=== PATIENT | female | born 1975 | race Caucasian/White ===

== ENCOUNTER 2020-04-29 09:30 | Outpatient (CLI) | payer MEDICAID, SELFPAY ==
--- NOTE | 2020-04-29 09:41 | XR_ITS ---
WS: [id number] Chest 2 views, 04/29/2020 Clinical Data: SUPRACLAVICULAR LYMPHADENOPATHY Comparison: None. Findings: No nodules, masses or effusions are seen. The heart is normal. The pulmonary vascularity is not increased. No pneumonia or pneumothorax is seen. There is a dextroscoliosis of the lower thoraci c spine. XR/XR chest 2V* [id number] Impression: Negative chest.
== END 2020-04-29 09:31 | disposition home or self-care (01) ==
LOC: RAD 09:37
PROVIDERS: PCP Nurse Practitioner Family; Visit Provider Nurse Practitioner Family
DX: R59.0 Localized enlarged lymph nodes (principal)
CPT/HCPCS: 71046

== ENCOUNTER 2020-06-24 09:41 | Outpatient (CLI) | payer MEDICAID, SELFPAY ==
--- NOTE | 2020-06-24 09:56 | US_ITS ---
WS: [id number] ULTRASOUND SOFT TISSUES cervical chains. HISTORY: LOCALIZED ENLARGED LYMPH NODES COMPARISON: None available. TECHNIQUE: 2-D and color Doppler imaging is submitted. Bilateral cervical chains are imaged. Bilateral benign-appearing lymph nodes along the cervical chain s. Normal appearance with normal fatty addis. No enlargement. Lymph nodes remain being shape. No fluid collections. US/US soft tissue/extremity [id number] IMPRESSION: Normal-appearing bilateral cervical chain lymph nodes.
== END 2020-06-24 09:42 | disposition home or self-care (01) ==
PROVIDERS: PCP Nurse Practitioner Family; Visit Provider Specialist
DX: R59.0 Localized enlarged lymph nodes (principal)
CPT/HCPCS: 76882

== ENCOUNTER 2020-07-21 13:36 | Outpatient (CLI) | payer BC, MEDICAID, SELFPAY ==
--- NOTE | 2020-07-21 13:43 | MM_ITS ---
WS: [id number] SCREENING DIGITAL MAMMOGRAM WITH CAD HISTORY: SCREENING COMPARISON: None available. Bilateral CC and MLO views submitted. Computer aided detection analyzed. Breast composition: There are scattered areas of fibroglandular density. No suspicious masses, microc alcifications or architectural distortion. MM/[place] [id number] IMPRESSION: BI-RADS: 1-Negative FOLLOW UP: 1 Year Follow-up
== END 2020-07-21 13:37 | disposition home or self-care (01) ==
LOC: RADSHAW 13:41
PROVIDERS: PCP Nurse Practitioner Family; Visit Provider Internal Medicine
DX: Z12.31 Encounter for screening mammogram for malignant neoplasm of breast (principal)
CPT/HCPCS: 77067

== ENCOUNTER 2022-09-11 07:55 | Outpatient (CLI) | payer BC, MEDICAID, SELFPAY ==
--- NOTE | 2022-09-11 08:07 | MM_ITS ---
WS: [id number] Bilateral screening 3D tomosynthesis digital mammogram, 09/11/2022 Clinical Data: SCREEN Comparison: 07/21/2020 Findings: The breast parenchymal pattern shows fibroglandular tissue. No spiculated masses or clustered calcifi cations are seen. There are no secondary signs of carcinoma. There are lymph nodes in the left axilla . MM/[place] [id number] Impression: 1. Negative bilateral mammogram unchanged. 2. Recommend annual screening mammograms. BIRADS: 1-Negative FOLLOW UP: 1 Year Follow-up The CAD sample checker was used.
== END 2022-09-11 07:56 | disposition home or self-care (01) ==
PROVIDERS: PCP Nurse Practitioner Family; Visit Provider Nurse Practitioner Family
DX: Z12.31 Encounter for screening mammogram for malignant neoplasm of breast (principal)
CPT/HCPCS: 77063; 77067

== ENCOUNTER → 2023-09-07 08:13 | Outpatient (BNVA) | payer BC, MEDICAID, SELFPAY | PROVIDERS: PCP Nurse Practitioner Family; Referring Provider Nurse Practitioner Family; Visit Provider Nurse Practitioner | DX: M19.012 Primary osteoarthritis, left shoulder; M62.838 Other muscle spasm; M75.22 Bicipital tendinitis, left shoulder; Z98.890 Other specified postprocedural states; R29.898 Other symptoms and signs involving the musculoskeletal system | CPT/HCPCS: 73030 ==

== ENCOUNTER 2023-09-19 11:18 | Outpatient (CLI) | payer BC, MEDICAID, SELFPAY ==
--- NOTE | 2023-09-19 11:44 | MM_ITS ---
WS: [id number] Bilateral screening 3D tomosynthesis digital mammogram, 09/19/2023 Clinical Data: SCREENING Comparison: 09/11/2022, 07/21/2020. Findings: The breast parenchymal pattern shows fibroglandular tissue. No spiculated masses or clustered calcifi cations are seen. There are no secondary signs of carcinoma. Impression: 1. Negative bilateral mammogram unchanged. 2. Recommend annual screening mammograms. MM/[place] [id number] BIRADS: 1-Negative FOLLOW UP: 1 Year Follow-up The CAD toolroom checker was used.
== END 2023-09-19 11:19 | disposition home or self-care (01) ==
LOC: RAD 11:19
PROVIDERS: PCP Nurse Practitioner Family; Visit Provider Nurse Practitioner Family
DX: Z12.31 Encounter for screening mammogram for malignant neoplasm of breast (principal)
CPT/HCPCS: 77063; 77067

== ENCOUNTER → 2023-10-31 07:09 | Outpatient (BNVA) | payer BC, MEDICAID, SELFPAY | PROVIDERS: PCP Nurse Practitioner Family; Visit Provider Podiatrist Foot & Ankle Surgery | DX: S99.192D Other physeal fracture of left metatarsal, subsequent encounter for fracture with routine healing; X58.XXXD Exposure to other specified factors, subsequent encounter | CPT/HCPCS: 73630 ==

== ENCOUNTER → 2023-11-21 08:07 | Outpatient (BNVA) | payer BC, MEDICAID, SELFPAY | PROVIDERS: PCP Nurse Practitioner Family; Visit Provider Podiatrist Foot & Ankle Surgery | DX: S99.192D Other physeal fracture of left metatarsal, subsequent encounter for fracture with routine healing; X58.XXXD Exposure to other specified factors, subsequent encounter | CPT/HCPCS: 73630 ==

== ENCOUNTER → 2023-12-05 08:42 | Outpatient (BNVA) | payer BC, SELFPAY | PROVIDERS: PCP Nurse Practitioner Family; Visit Provider Podiatrist Foot & Ankle Surgery | DX: S99.192D Other physeal fracture of left metatarsal, subsequent encounter for fracture with routine healing; X58.XXXD Exposure to other specified factors, subsequent encounter | CPT/HCPCS: 73630 ==

== ENCOUNTER → 2024-01-09 08:12 | Outpatient (BNVA) | payer BC, MEDICAID, SELFPAY | PROVIDERS: PCP Nurse Practitioner Family; Visit Provider Podiatrist Foot & Ankle Surgery | DX: S99.191D Other physeal fracture of right metatarsal, subsequent encounter for fracture with routine healing; X58.XXXD Exposure to other specified factors, subsequent encounter | CPT/HCPCS: 73630 ==

== ENCOUNTER 2024-02-13 07:56 | Outpatient (CLI) | payer BC, MEDICAID, SELFPAY ==
--- NOTE | 2024-02-13 08:00 | IR_ITS ---
WS: [id number] LEFT SHOULDER ARTHROGRAM UNDER FLUOROSCOPY. PRIOR TO MRI EVALUATION. HISTORY: M19.012 - Primary osteoarthritis, left shoulder COMPARISON: None available. FLUOROSCOPY TIME: 3min [id number] # of spot films: 1 Procedure, risks and complications were explained to the patient. Consent has been obtained. Under fluoroscopic guidance the skin is marked over the medial superior third of the humeral head, cl eansed with ChloraPrep and anesthetized with lidocaine. 22-gauge spinal needle is inserted to the cor bernadette of the humeral head. Test injection with Omnipaque reveals the needle is appropriately positioned in the joint. A mixture of 10 cc sterile saline, 5 cc Omnipaque and 0.1 mmol gadolinium are injected under fluoroscopic guidance. Patient tolerated the joint distention well. No complications. Mild AC joint widening from prior decompression surgery. Patient to proceed to MRI. IR/IR arthrogram shoulderLT [id number] IMPRESSION: Uncomplicated LEFT shoulder joint injection prior to MRI.
--- NOTE | 2024-02-13 08:00 | MR_ITS ---
WS: [id number] MRI LEFT SHOULDER ARTHROGRAM HISTORY: left shoulder pain COMPARISON: Radiographs 09/07/2023 TECHNIQUE: Pre and postcontrast imaging. Gadolinium mixture was injected under fluoroscopy. Coronal T 1 fat sat, sagittal T2 fat sat, coronal T2 fat sat, axial proton density, axial T1 nonfat saturation and ABER sagittal T1 fat sat views are submitted. Prearthrogram: Mild AC joint widening due to prior decompression surgery. No significant subacromial impingement. No subacromial or subdeltoid bursal fluid. Biceps tendon is not definitely seen within t he bicipital groove. It may be partially subluxed. The tendon itself is small caliber. This may be be tter seen on the arthrogram to follow. No muscle atrophy or edema. Small insertion site tear of the i nfraspinatus. This is a small tear along the articular surface of the infraspinatus tendon. Focal are a of increased T2 signal in the superior labrum. Micrometallic artifact noted throughout the shoulder from the prior shoulder decompression surgery. Post arthrogram: Possible small insertion site tear of the infraspinatus tendon does not persist on t he arthrogram imaging. There is very mild fraying along the articular surface of the distal supraspin atus and infraspinatus tendon interdigitations. There is no full-thickness tear. There is a very mahogany r fraying. There is no muscle atrophy. The biceps tendon is very small caliber and up portion of the biceps tendon is present in the bicipital groove. No labral tear. MR/MR shoulder LT wo/w con [id number] IMPRESSION: 1. Small caliber biceps tendon. 2. Articular surface fraying of the distal supraspinatus and infraspinatus ten dons the tendons interdigitate. 3. Prior decompression surgery with micrometallic artifacts near the AC joint. 4. No muscle atrophy or edema.
[2024-02-13] MEDS: gadobenate dimeglumine 20 mL vial IV (10:20)
== END 2024-02-13 07:57 | disposition home or self-care (01) ==
PROVIDERS: PCP Nurse Practitioner Family; Visit Provider Nurse Practitioner
DX: M75.22 Bicipital tendinitis, left shoulder (principal); M19.012 Primary osteoarthritis, left shoulder; Z98.890 Other specified postprocedural states; R29.898 Other symptoms and signs involving the musculoskeletal system
CPT/HCPCS: 23350; 73223; 73630; 77002; A9577

== ENCOUNTER 2024-03-05 09:14 | Outpatient (CLI) | payer BC, MEDICAID, SELFPAY ==
--- NOTE | 2024-03-05 09:32 | XR_ITS ---
WS: [id number] RIGHT SHOULDER: 3 VIEW(S) TECHNIQUE: Internal and external rotation with Y view. HISTORY: Right shoulder pain COMPARISON: None available. No fracture or dislocation or soft tissue abnormality. Very mild narrowing of the AC joint. Sclerosis and subchondral cysts along the distal clavicle and ad jacent acromion. Visualized RIGHT upper lung is clear. XR/XR shoulder RT min 2V* [id number] IMPRESSION: 1. Mild AC joint arthritis. 2. No fracture.
== END 2024-03-05 09:15 | disposition home or self-care (01) ==
LOC: RAD 09:24
PROVIDERS: PCP Nurse Practitioner Family; Visit Provider Nurse Practitioner Family
DX: M13.811 Other specified arthritis, right shoulder (principal); M85.611 Other cyst of bone, right shoulder
CPT/HCPCS: 73030

== ENCOUNTER 2024-05-01 14:21 | Outpatient (CLI) | payer BC, MEDICAID, SELFPAY | END 2024-05-01 14:22 | disposition home or self-care (01) | LOC: RAD 14:22 | PROVIDERS: PCP Nurse Practitioner Family; Visit Provider Nurse Practitioner Family | DX: M50.322 Other cervical disc degeneration at C5-C6 level (principal); M25.511 Pain in right shoulder; M25.78 Osteophyte, vertebrae | CPT/HCPCS: 72050 ==

== ENCOUNTER 2024-05-28 13:18 | Outpatient (CLI) | payer BC, MEDICAID, SELFPAY ==
--- NOTE | 2024-05-28 13:21 | MR_ITS ---
WS: [email or web address] MRI ARTHROGRAM RIGHT SHOULDER INDICATION: RIGHT shoulder pain TECHNIQUE: Sagittal and coronal coronal T1, T2, PD, axial PD and T2 imaging. Post arthrogram fat satu ration imaging. FINDINGS: Hill-Sachs lesion. Recommend correlation with prior dislocation. Subchondral cystic change involving the greater tuberosity. Evidence of prior rotator cuff surgery with rotator cuff anchors. Chronic thinning of the distal supraspinatus with tiny insertional tear. Supraspinatus appears intact . Intrasubstance and undersurface tear distal infraspinatus near the insertion. Chronic thinning of t he supraspinatus and infraspinatus. Normal teres minor. Subscapularis appears intact. Contrast dissec ting along the subscapularis tendon from injection. Biceps tendon appears intact within the bicipital groove. Biceps labral anchor appears intact. Intra-articular biceps tendon appears intact. Tear of the anterior superior glenoid labrum. Subchondral cystic change involving the glenoid. No acu te appearing Bankart lesion. Chronic appearing degenerative irregularity involving the inferior labru m. MR/MR shoulder RT wo/w con [id number] IMPRESSION: 1. Small undersurface tears involving distal supraspinatus and infraspinatus with chronic thinning worse involving the infraspinatus insertion 2. Rotator cuff is otherwise intact. 3. Biceps tendon intact in the bicipital groove. 4. Suspected Hill-Sachs lesion. 5. Tear of the anterior superior glenoid labrum. Biceps labral anchor appears intact. Intra-articular biceps tendon appears intact. 6. Advanced degenerative changes glenohumeral articulation for patient this ag e. 7. Subchondral cystic change involving the glenoid.
--- NOTE | 2024-05-28 13:30 | IR_ITS ---
WS: [email or web address] SHOULDER ARTHROGRAM RIGHT Fluoroscopic guided right shoulder arthrogram CLINICAL INFORMATION: right shoulder pain. previous RCR COMPARISON: None. PROCEDURE: The procedure including risks, benefits and complications were discussed with the patient, who agreed to proceed. Using sterile technique, the patient was prepped and draped in the usual ster ile fashion. After 1% lidocaine injection using fluoroscopic guidance, a 22-gauge 3.5 cm spinal needl e was advanced into the glenohumeral joint. Approximately 13 ml of a solution containing 10 ml normal saline, 10 ml Omnipaque 240, and 0.1 ml gadolinium was administered. No immediate complications. FLUOROSCOPY TIME: 3min [id number] # of spot films: 2 IR/IR arthrogram shoulderRT [id number] IMPRESSION: Uncomplicated fluoroscopic-guided right shoulder arthrogram. MRI to follow.
[2024-05-28] MEDS: iohexol 240 mg/mL 50 mL Btl INTRATHECA (14:54)
== END 2024-05-28 13:19 | disposition home or self-care (01) ==
LOC: RAD 13:19
PROVIDERS: PCP Nurse Practitioner Family; Visit Provider Nurse Practitioner
DX: S46.011A Strain of muscle(s) and tendon(s) of the rotator cuff of right shoulder, initial encounter (principal); S43.431A Superior glenoid labrum lesion of right shoulder, initial encounter; M85.611 Other cyst of bone, right shoulder; R29.898 Other symptoms and signs involving the musculoskeletal system; Z98.890 Other specified postprocedural states; X58.XXXA Exposure to other specified factors, initial encounter
CPT/HCPCS: 23350; 73223; 77002

== ENCOUNTER → 2024-06-23 15:25 | Outpatient (BNVA) | payer BC, MEDICAID, SELFPAY | PROVIDERS: PCP Nurse Practitioner Family; Visit Provider Nurse Practitioner | DX: R29.898 Other symptoms and signs involving the musculoskeletal system (principal); M25.511 Pain in right shoulder; M75.21 Bicipital tendinitis, right shoulder | CPT/HCPCS: 36415; 80053; 81001; 85025 ==

== ENCOUNTER → 2024-06-24 08:32 | Outpatient (BNVA) | payer BC, MEDICAID, SELFPAY | PROVIDERS: PCP Nurse Practitioner Family; Visit Provider Family Medicine | DX: Z01.818 Encounter for other preprocedural examination (principal) | CPT/HCPCS: 87086 ==

== ENCOUNTER 2025-03-31 08:29 | Emergency (ER) | payer BC, MEDICAID, SELFPAY ==
[2025-03-31 08:33] VITALS: BP 146/71; PULSE 79; RESP 18; TEMP 36.7; O2SAT 100
--- OUTSIDE RECORDS SUMMARY | 2025-03-31 09:08 | XMS_ITS | Clinical Summary ---
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 Active HYDROXYZINE HCL ORAL Take by mouth. Active cyclobenzaprine HCl (CYCLOBENZAPRIN E ORAL) Take by mouth. Active celecoxib (CeleBREX) 50 mg capsule Take 50 mg by mouth. Active ibuprofen (MOTRIN) 800 mg tablet Take 800 mg by mouth every 6 hours as needed for Pain, Mild. Active HYDROcodone-amber taminophen (NORCO) 5-325 mg tabletIndicatio ns:Nondisplaced fracture of fifth metatarsal bone, left foot, initial encounter for closed fracture Take 1 Tablet by mouth every 6 hours as needed for Pain, Severe. Max Daily Amount: 4 Tablets 4 Tablet 10/12/2023 Active Active Problems Problem Noted Date Diagnosed Date Nondisplaced fracture of fif th metatarsal bone, left foot, initial encounter for closed fracture 10/12/2023 Social History Tobacco Use Types Packs/Day Years Used Date Smoking Tobacco: Former Cigarettes Tobacco Cessation:Counseling Given: Not Answered Alcohol Use Standard Drinks/Week Comments Not Currently 0 (1 standard drink = 0.6 oz pur e alcohol) Feeling Safe Answer Date Recorded Are you in a relationship wi th someone who hurts you emotionally and/or physically? 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 Gender Identity Not on file Sexual Orientation Not on file Last Filed Vital Signs Vital Sign Reading Time Taken Comments Blood Pressure 136/90 10/12/2023 7:45 PM CDT Pulse 77 10/12/2023 7:45 PM CDT Temperature 35.6 C (96.1 F) 10/12/2023 5:03 PM CDT Respiratory Rate 18 10/12/2023 7:45 PM CDT Oxygen Saturation 98% 10/12/2023 7:45 PM CDT Inhaled Oxygen Concentration - - Weight 128 kg (282 lb 3.2 oz) 10/12/2023 5:03 PM CDT Height 157.5 cm (5' 2 ) 10/12/2023 5:03 PM CDT Body Mass Index 51.62 10/12/2023 5:03 PM CDT Plan of Treatment Health Maintenance Due Date Last Done Comments DTAP/TDAP/TD VACCINES (1 - Tdap) 1994 HEPATITIS B VACCINES (1 of 3 - 19+ 3-dose series) 05/17 HPV/Cotest (21-29) 1996 CERVICAL CANCER SCREENING 2005 HPV/Cotest (30-65) 2005 PAP SMEAR 2005 BREAST CANCER SCREENING 2015 COLORECTAL SCREENING 2020 Colorectal Cancer Screening 2020 FIT-DNA Q 3 years 2020 FIT/FOBT Q 1 year 2020 Flex Sig/CT Colonography Q 5 years 2020 INFLUENZA VACCINE (#1) 2025 Insurance [facility] MEDICAID Care Teams Furnace Mechanic Relationship Specialty Start Date End Date Yovani Araujo MD [address] [place] [phone] PCP - General Family Practice 08/12/23
[2025-03-31 09:53] LABS: Hematocrit 40.0 % (36-47); Hemoglobin 13.10 g/dL (11.27-16.99); Mean Corpuscular HGB Conc 32.8 g/dL (30-55); Mean Corpuscular Hemoglobin 28.0 pg (27-33); Mean Corpuscular Volume 85.5 fl (85-98); Nucleated Red Blood Cells % 0 %; Platelet Count 382 10^3/cmm (157-399); Red Blood Count 4.68 10^6/uL (3.85-5.65); White Blood Count 8.96 10^3/uL (3.29-11.43)
[2025-03-31 10:09] LABS: Glucose Urine UA Negative (Normal); Nitrate Urine Negative (Negative); Specific Gravity, Urine 1.025 (1.005-1.030)
[2025-03-31 10:10] VITALS: BP 119/80; PULSE 85; O2SAT 100
--- NOTE | 2025-03-31 10:10 | ED_ITS ---
HPI - Abdominal Pain 2 General: Chief Complaint: Abdominal Pain Stated Complaint: uti faye pain Time Seen by Provider: 03/31/25 08:32 History of Present Illness: 49-year-old female presents emergency ro om complaining of dysuria urgency and frequency began yesterday. This morning when she woke up she had more lower left back pain radiating right to the groin no hematuria. Associated Symptoms: Reports dysuria; Denies chills and fever(s) Related Data Previous Rx's ?Medication ?Instructions ?Recorded bupropion HCl 300 mg 24 hr tablet, 300 mg PO QAM #30 t abs 02/26/25 extended release (Wellbutrin XL) buspirone 10 mg tablet 10 mg PO BID #60 tabs duloxetine 60 mg capsule,delayed 60 mg PO DAILY #30 ca ps 02/26/25 release hydroxyzine HCl 50 mg tablet 50 mg PO QID PRN anxiety #120 tabs 02/26/25 hydrocodone 5 mg-acetaminophen 325 1 tab PO Q6H PRN pa in #7 tabs 03/31/25 mg tablet Allergies Allergy/AdvReac Type Severity Reaction Status Date / Time Sulfa (Sulfonamide Allergy Mild hives Verified 03/13/25 11:17 Antibiotics) Review of Systems 2 Const: Denies: fever(s) or chills Card: Denies: chest pain Resp: Denies: dyspnea GI: Reports: abdominal pain : Reports: dysuria, urinary frequency and urinary urgency Musc: Denies: neck pain or back pain Skin/Breast: Denies: rash PFSH ED 2 PFSH: Medical History Osteoarthritis of shoulders, bilateral Weakness of right shoulder Right shoulder pain Biceps tendinitis of right shoulder Psychiatric care Osteoarthritis of left shoulder Biceps tendinitis of left shoulder Weakness of left shoulder Spasm of left trapezius muscle Surgical History Hx of repair of right rotator cuff History of shoulder surgery Left shoulder subacromial decompression, DCR and Acromioplasty -- 2013. Social History Smoking and tobacco/nicotine status: never used tobacco/nicotine Physical Exam 2 Const: COMMON NORMALS: no acute distress GENERAL APPEARANCE: cooperative and comfortable ORIENTATION/CONSCIOUSNESS: Yes awake, Yes oriented to person, Yes oriented to place and Yes oriented to time HENMT: COMMON NORMALS: normocephalic, atraumatic and hearing grossly normal bilaterally HEAD & SCALP: normocephalic and atraumatic Resp: COMMON NORMALS: normal respiratory effort, No retractions, No use of accessory muscles and clear to auscultation bilaterally AUSCULTATION: clear to auscultation bilaterally Cardio: COMMON NORMALS: regular rate, regular rhythm and No murmurs present (Cardio) RATE: regular rate RHYTHM: regular rhythm GI: COMMON NORMALS: Soft to palpation and No hepatosplenomegaly present A USCULTATION: Yes normoactive bowel sounds PALPATION: Yes Soft to palpation, No Tenderness to palpation present (GI), No Guarding due to palpation present (GI) and Yes No hepatosplenomegaly present Extremity: COMMON NORMALS: normal to inspection, capillary refill normal, no clubbing, cyanosis or edema, no calf tenderness and no pedal edema Neuro: SENSORIUM/ORIENTATION: Yes oriented to person, Yes oriented to place and Yes oriented to time Skin: COMMON NORMALS: no rashes or lesions noted GENERAL SKIN EXAM: no rashes or lesions noted Course 2 Vital Signs: Vital signs: Vital Signs Temperature 98.0 F 03/31/25 08:33 Pulse Rate 81 03/31/25 12:33 Respiratory Rate 18 03/31/25 11:22 Blood Pressure 125/69 03/31/25 12:33 Pulse Oximetry 96 03/31/25 12:33 Oxygen Delivery Me thod Room Air 03/31/25 12:16 MDM - Abdominal Pain Medical Decision Making CT shows dilated ureter urine showed significant hematuria suspect patient has passed stone she is feeling quite a bit better already will discharge patient home with pain medications in case she has continued ureteral spasm. Strain urine for stone follow-up with urology Medical Records I reviewed the patient's medical records. Lab Data I reviewed the patient's lab results. 03/31/25 09:45 03/31/25 09:45 Labs/Radiology: Radiology Impressions Abdomen/Pelvis CT 03/31/25 11:11 IMPRESSION: 1. Very mild perinephric stranding around the LEFT kidney with a minimally prominent LEFT renal pelvis and proximal LEFT ureteral stranding. No stone is identified within the ureter. Ureter returns to normal caliber distally. Without visualizing a ureteral stone these changes may be due to pyelonephritis or recently passed stone, non-radiopaque stone or stricture of the ureter. 2. Narrow urinary bladder. This can be noted with retroperitoneal fibrosis. There is no evidence for retroperitoneal fibrosis by CT. 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 Laboratory Results WBC 8.96 10^3/uL (3.29-11.43) 03/31/25 09:45 RBC 4.68 10^6/uL (3.85-5.65) 03/31/25 09:45 Hgb 13.10 g/dL (11.27-16.99) 03/31/25 09:45 Hct 40.0 % (36-47) 03/31/25 09:45 MCV 85.5 fl (85-98) 03/31/25 09:45 MCH 28.0 pg (27-33) 03/31/25 09:45 MCHC 32.8 g/dL (30-55) 03/31/25 09:45 RDW 13.6 % (12.1-15.1) 03/31/25 09:45 Plt Count 382 10^3/cmm (157-399) 03/31/25 09:45 MPV 8.3 fL (7.4-10.4) 03/31/25 09:45 Neut % (Auto) 67.1 % 03/31/25 09:45 Lymph % (Auto) 22.0 % 03/31/25 09:45 [place] % (Auto) 5.7 % 03/31/25 09:45 Eos % (Auto) 4.1 % 03/31/25 09:45 Baso % (Auto) 0.8 % 03/31/25 09:45 Neut # (Auto) 6.01 10^3/uL (1.8-7.7) 03/31/25 09:45 Lymph # (Auto) 2.0 10^3/uL (0.8-4.8) 03/31/25 09:45 [place] # (Auto) 0.5 10^3/uL (0.2-0.9) 03/31/25 09:45 Eos # (Auto) 0.4 10^3/uL (0.0-0.8) 03/31/25 09:45 Baso # (Auto) 0.1 10^3/uL (0.0-0.1) 03/31/25 09:45 Nucleated RBC % (auto) 0 % 03/31/25 09:45 Nucleated RBCs # 0.0 /100WBC 03/31/25 09:45 Sodium 140 mmol/L (136-145) 03/31/25 09:45 Potassium 4.0 mmol/L (3.5-5.1) 03/31/25 09:45 Chloride 103 mmol/L (98-107) 03/31/25 09:45 Carbon Dioxide 25 mmol/L (22-29) 03/31/25 09:45 Anion Gap 16.0 (5-19) 03/31/25 09:45 BUN 11 mg/dL (6-20) 03/31/25 09:45 Creatinine 0.8 mg/dL (0.5-0.9) 03/31/25 09:45 GFR Calculation 76.2 mL/min (90-130) L 03/31/25 09:45 Glucose 103 mg/dL (65-115) 03/31/25 09:45 Calculated Osmolality 290 mOsm/kg (285-295) 03/31/25 09:45 Calcium 9.1 mg/dL (8.5-10.5) 03/31/25 09:45 Total Bilirubin 0.3 mg/dL (0.15-1.2) 03/31/25 09:45 AST 14 U/L (0-32) 03/31/25 09:45 ALT 11 U/L (0-33) 03/31/25 09:45 Alkaline Phosphatase 129 U/L (35-105) H 03/31/25 09:45 Total Protein 7.5 g/dL (6.6-8.7) 03/31/25 09:45 Albumin 4.1 g/dL (3.5-5.2) 03/31/25 09:45 Globulin 3.4 g/dL (1.3-4.6) 03/31/25 09:45 Urine Color Yellow (Yellow) 03/31/25 09:15 Urine Appearance Cloudy (CLEAR) A 03/31/25 09:15 Urine pH 5.5 (5-7) 03/31/25 09:15 Ur Specific [place] 1.025 (1.005-1.030) 03/31/25 09:15 Urine Protein Trace (Negative) A 03/31/25 09:15 Urine Glucose (UA) Negative (Normal) 03/31/25 09:15 Urine Ketones Negative (Negative) 03/31/25 09:15 Urine Blood 3+ (Negative) A 03/31/25 09:15 Urine Nitrate Negative (Negative) 03/31/25 09:15 Urine Bilirubin Negative (Negative) 03/31/25 09:15 Urine Urobilinogen 1.0 mg/dL (Negative) 03/31/25 09:15 Ur Leukocyte Esterase Negative (Negative) 03/31/25 09:15 Urine RBC >100 /hpf (0-2) H 03/31/25 09:15 Urine WBC 0-5 /hpf (0-5) 03/31/25 09:15 Ur Squamous Epith Cells 6-10 /hpf (0-5) 03/31/25 09:15 Amorphous Sediment Not Reportable 03/31/25 09:15 Urine Bacteria None seen /hpf (NONE) 03/31/25 09:15 Hyaline Casts 4.95 /lpf 03/31/25 09:15 All radiology interpretation(s) finalized by discharge Discharge Plan Discharge Patient Disposition: Home Clinical Impression: Calculus of kidney Condition: Stable Prescriptions: New hydrocodone-acetaminophen 5-325 mg tablet 1 tab PO Q6H PRN (Reason: pain) Qty: 7 0RF No Action bupropion HCl [Wellbutrin XL] 300 mg tablet extended release 24 hr 300 mg PO QAM Qty: 30 2RF buspirone 10 mg tablet 10 mg PO BID Qty: 60 2RF duloxetine 60 mg capsule,delayed release(DR/EC) 60 mg PO DAILY Qty: 30 2RF hydroxyzine HCl 50 mg tablet 50 mg PO QID PRN (Reason: anxiety) Qty: 120 2RF Discharge Orders: Discharge ED (Routine); Ordered 03/31/25 Ordered By: Felix De Luna Referrals: Jessica Shen, ADMISSIONS RN [Primary Care Provider, Nurse Practitioner] Discharge Diet: Usual diet Discharge Activity: Resume usual activity Patient Instructions: Kidney Stones (ED), How to Strain Your Urine (ED), Opioid Safety, Pain Management, Patient Portal & Nik Instructions Activity Restrictions/Additional Instructions: Thank you for choosing [facility] for your healthcare needs today. It is very important that you follow up as instructed or that you return to the Emergency Department should you have concerns or if your condition changes or worsens in any way. Emergency department visits are focused on emergent conditions, in some cases you may require further evaluation on an outpatient basis. You were seen in the emergency room for complaints of flank pain and urinary tract symptoms. Urine showed significant amount of blood but no signs of infection CT shows evidence that you recently passed a kidney stone which is consistent with your symptoms. You were given hydrocodone to use as needed if you continue to have pain or discomfort. Recommend you strain your urine to try to catch the stone. Follow-up with your primary care doctor. (Please note that included in your discharge packet is information concerning opioid safety and pain management. This information is given to all patients were discharged from the ER regardless of their discharge diagnosis or the medicines they usually take or are prescribed.) Print Language: [place] Coding Level of Care Code ED Senior Ui Designer for Rex Marie
[2025-03-31 10:14] LABS: Add Urine Microscopic? YES
[2025-03-31 10:26] LABS: Alanine Aminotransferase 11 U/L (0-33); Albumin Level 4.1 g/dL (3.5-5.2); Alkaline Phosphatase 129 U/L (35-105); Anion Gap 16.0 (5-19); Aspartate Amino Transferase 14 U/L (0-32); Blood Urea Nitrogen 11 mg/dL (6-20); Calcium 9.1 mg/dL (8.5-10.5); Carbon Dioxide 25 mmol/L (22-29); Chloride 103 mmol/L (98-107); Creatinine Clr Calc Pharmacy 108.5887; Globulin 3.4 g/dL (1.3-4.6); Glucose 103 mg/dL (65-115); Osmolality Calculated 290 mOsm/kg (285-295); Potassium 4.0 mmol/L (3.5-5.1); Sodium 140 mmol/L (136-145); Total Protein 7.5 g/dL (6.6-8.7)
--- NOTE | 2025-03-31 10:47 | PC.PHAR ---
Pt states she takes 4 medications daily. All mainetnance medications were last filled in December for 30 day supply.
--- NOTE | 2025-03-31 11:11 | CT_ITS ---
WS: [id number] CT ABDOMEN AND PELVIS NONCONTRAST HISTORY: flank pain TECHNIQUE: Imaging performed through the abdomen and pelvis. Coronal and sagittal reformats are submitted. All CT scans at [facility] use at least one of these dose optimization techniques: automated exposure control; mA and/or kV adjustment per patient size (includes targeted exams where dose is matched to clinical indication); or iterative reconstruction. DLP: 1769.87 mGy.cm COMPARISON: None available. Lower thorax: 2 mm micronodule LEFT lung base. No pneumonia. Liver: Normal size liver. No mass or bile duct dilatation. Gallbladder: Normal gallbladder. No pericholecystic fluid or cholelithiasis. No gallbladder wall thickening. Pancreas: Normal size and attenuation. Normal pancreatic duct. No pancreatitis or mass. Spleen: Normal size with granulomata. Adrenal glands: Normal. No mass. Right kidney: Normal size kidney with no mass or hydronephrosis. Left kidney: Mild perinephric stranding without significant renal enlargement. Mild dilatation of the LEFT renal pelvis and LEFT ureter with periureteral stranding. Ureter is very minimally prominent to the L5-S1 level. The distal ureter is very small caliber with no stones identified within the ureter. There are a few small phleboliths in the pelvis. Aorta: Normal abdominal aorta, no aneurysm or atherosclerosis. No free fluid, intraperitoneal air or significant lymphadenopathy. GI tract: Normal noncontrast imaging of the stomach, small bowel and colon. No obstruction or wall thickening. Normal appendix. Abdominal wall: Negative. No hernia. Pelvis: Narrow urinary bladder with increased fat deposition in the pelvis. There is no free fluid or adenopathy. No calcifications within the urinary bladder. RIGHT ovarian cyst 3.5 x 3.2 cm. Osseous structures: Unremarkable. CT/CT kidney stone [id number] IMPRESSION: 1. Very mild perinephric stranding around the LEFT kidney with a minimally pro minent LEFT renal pelvis and proximal LEFT ureteral stranding. No stone is iden tified within the ureter. Ureter returns to normal caliber distally. Without vi sualizing a ureteral stone these changes may be due to pyelonephritis or recent ly passed stone, non-radiopaque stone or stricture of the ureter. 2. Narrow urinary bladder. This can be noted with retroperitoneal fibrosis. Th ere is no evidence for retroperitoneal fibrosis by CT. 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
[2025-03-31 11:22] VITALS: RESP 18
[2025-03-31] MEDS: morphine 4 mg/mL SDV 1 mL IVP (11:22)
[2025-03-31] MEDS: ondansetron 2 mg/ML SDV 2 mL 4 MG IVP (11:24)
[2025-03-31 11:28] VITALS: BP 125/76; PULSE 90; O2SAT 100
[2025-03-31 12:16] VITALS: BP 125/76; PULSE 82; O2SAT 99
[2025-03-31 12:33] VITALS: BP 125/69; PULSE 81; O2SAT 96
== END 2025-03-31 12:33 | disposition home or self-care (01) ==
PROVIDERS: Emergency Provider Family Medicine; PCP Nurse Practitioner Family
DX: N20.0 Calculus of kidney (principal)
CPT/HCPCS: 36415; 74176; 80053; 81001; 85025; 87086; 96374; 96375; 99285; J1885; J2270; J2405